=== PATIENT | male | born 1995 | race Caucasian/White ===

== ENCOUNTER 2020-11-17 13:50 | Emergency (ER) | payer OTHER, SELFPAY ==
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
[2020-11-17 14:05] VITALS: BP 131/60; BP 144/92; PULSE 66; PULSE 99; RESP 16; TEMP 36.7; O2SAT 100; O2SAT 98; BMI 34.5
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
[2020-11-17] MEDS: Acetaminophen 325 MG TABLET 975 MG PO (15:09)
== END 2020-11-17 16:21 | disposition home or self-care (01) ==
PROVIDERS: Emergency Provider Emergency Medicine; PCP Pediatrics
DX: S39.012A Strain of muscle, fascia and tendon of lower back, initial encounter (principal); S13.4XXA Sprain of ligaments of cervical spine, initial encounter; S09.90XA Unspecified injury of head, initial encounter; V44.5XXA Car driver injured in collision with heavy transport vehicle or bus in traffic accident, initial encounter; Y93.89 Activity, other specified; Y92.411 Interstate highway as the place of occurrence of the external cause; Y99.9 Unspecified external cause status
CPT/HCPCS: 70450; 71046; 72100; 72125; 99283; 99284

== ENCOUNTER 2021-04-15 10:34 | Outpatient (REF) | payer OTHER, SELFPAY ==
--- NOTE | ~2021-04-15 | XR_ITS ---
EXAMINATION: XR LUMBOSACRAL SPINE CLINICAL INFORMATION: Lumbar region degeneration disc disease. COMPARISON: X-rays lumbar sacral spine November 2020 TECHNIQUE: Three views of the lumbosacral spine. FINDINGS: The vertebral bodies and posterior elements are normal. The disc spaces are preserved and the vertebral alignment is normal. The paraspinal soft tissues are normal. XR/XR lumbar spine 2-3V IMPRESSION: Unremarkable examination.
== END 2021-04-15 10:35 | disposition home or self-care (01) ==
LOC: HO.XRAY 10:34
PROVIDERS: Visit Provider Physician Assistant
DX: M51.36 Other intervertebral disc degeneration, lumbar region (principal)
CPT/HCPCS: 72100

== ENCOUNTER 2021-12-22 13:27 | Outpatient (REF) | payer MEDICAID, SELFPAY ==
--- NOTE | ~2021-12-22 | XR_ITS ---
EXAMINATION: XR THORACOLUMBAR SPINE CLINICAL INFORMATION: Thoracic spine pain COMPARISON: Chest x-ray 11/17/2020 and chest x-ray 09/18/2012 TECHNIQUE: 3 views FINDINGS: There is normal thoracic kyphosis. There is moderate anterior wedging approximately T7 vertebra likely acute. Rest of the vertebral heights are normal. The disc heights are preserved. No lytic or sclerotic process seen. The paravertebral soft tissues are normal. XR/XR thoracic spine 2V IMPRESSION: Wedge-shaped deformity T7 vertebra question acute fracture versus congenital deformity. Correlate with CT thoracic spine exam. The deformity is not well-visualized on the chest x-ray 09/18/2012.
== END 2021-12-22 13:28 | disposition home or self-care (01) ==
LOC: HO.XRAY 13:27
PROVIDERS: PCP Pediatrics Pediatric Gastroenterology; Visit Provider Nurse Practitioner Women's Health
DX: M54.6 Pain in thoracic spine (principal)
CPT/HCPCS: 72070

== ENCOUNTER 2022-02-03 08:30 | Outpatient (REF) | payer MEDICAID, SELFPAY ==
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
== END 2022-02-03 08:31 | disposition home or self-care (01) ==
LOC: HO.CT 08:30
PROVIDERS: Visit Provider Nurse Practitioner Women's Health
DX: S22.060A Wedge compression fracture of T7-T8 vertebra, initial encounter for closed fracture (principal)
CPT/HCPCS: 72128